=== PATIENT | female | born 1955 | race Caucasian/White ===

== ENCOUNTER → 2017-07-27 | Day surgery (SDC) | payer BC ==
[~2017-07-27] MED LIST: IV RINGERS,LACTATED 1000ML 1,000 ML IV; LIDOCAINE 2% PF Vial for OR 5 ML VIAL.; PROPOFOL 40 ML IV
[2017-07-27] MEDS: IV RINGERS,LACTATED 1000ML 1,000 ML IV (07:16)
== END | disposition home or self-care (01) ==
LOC: SURG 06:17
DX: K64.0 First degree hemorrhoids (principal); K21.9 Gastro-esophageal reflux disease without esophagitis; Z98.84 Bariatric surgery status; E03.9 Hypothyroidism, unspecified; E78.5 Hyperlipidemia, unspecified; E11.9 Type 2 diabetes mellitus without complications; Z90.49 Acquired absence of other specified parts of digestive tract; Z88.0 Allergy status to penicillin; Z88.2 Allergy status to sulfonamides; Z88.8 Allergy status to other drugs, medicaments and biological substances; Z88.1 Allergy status to other antibiotic agents; Z79.84 Long term (current) use of oral hypoglycemic drugs; Z79.899 Other long term (current) drug therapy; Z83.3 Family history of diabetes mellitus; Z96.659 Presence of unspecified artificial knee joint; Z98.51 Tubal ligation status; Z82.49 Family history of ischemic heart disease and other diseases of the circulatory system
CPT/HCPCS: 43235; 88305; J2704

== ENCOUNTER → 2017-07-29 | Outpatient (CLI) | payer BC ==
[~2017-07-29] MED LIST changes: +CONTRAST GIVEN MC; +IOHEXOL 240 MG/ML 50ML VIAL. PO; +IOHEXOL 300 MG/ML 100ML VIAL. IV; -IV RINGERS,LACTATED 1000ML 1,000 ML IV; -LIDOCAINE 2% PF Vial for OR 5 ML VIAL.; -PROPOFOL 40 ML IV
[2017-07-29] MEDS: IOHEXOL 240 MG/ML 50ML VIAL. PO (09:30)
[2017-07-29] MEDS: IOHEXOL 300 MG/ML 100ML VIAL. IV (09:30)
== END | disposition home or self-care (01) ==
LOC: CT 08:56
DX: K43.2 Incisional hernia without obstruction or gangrene (principal); E11.9 Type 2 diabetes mellitus without complications; Z95.1 Presence of aortocoronary bypass graft
CPT/HCPCS: 74177; Q9966; Q9967

== ENCOUNTER → 2020-02-21 | Outpatient (CLI) | payer BC ==
[2017-07-27 08:20] VITALS: BP 135/65
[~2020-02-21] MED LIST changes: +BARIUM SULFATE 340 GM SUSPENSION. PO ONE; +BARIUM SULFATE 60% 355 ML SUSP PO ONE; -CONTRAST GIVEN MC; +DEXL60CA2 PO; +GABA300C18 PO; +GLIM4TAB8 PO; -IOHEXOL 240 MG/ML 50ML VIAL. PO; -IOHEXOL 300 MG/ML 100ML VIAL. IV; +LEVO75TA90 PO; +METF500T16 PO; +PRAM0.255 PO; +SIMETHICONE/SOD BICARB/CITRIC ACID PACKET. PO ONE
--- NOTE | 2020-02-21 14:24 | RAD ---
EXAM: Single-contrast upper GI series. HISTORY: Status post gastric bypass. Abdominal pain and nausea. Food gets stuck in the cervical esophagus. COMPARISON: 07/29/2017. FINDINGS: Barium contrast was administered orally and followed in its course through the esophagus, postoperative stomach and proximal small bowel. 14 fluoroscopic series were obtained. Fluoroscopy time 2.8 minutes. There are changes of coronary artery bypass grafting and cholecystectomy. 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 The esophagus is normal in morphology and mucosal pattern. The gastroesophageal junction is in its expected position. Esophageal motility appeared normal. However, there was a prominent cricopharyngeus impression on some swallows. A 12.5 mm barium pill arrested at this location and passed with liquids. The postoperative gastric pouch appears mildly dilated. No gastrogastric fistula is identified, but the excluded portion of the stomach is moderately distended with gas and a small amount of fluid. Some contrast is present in the duodenal bulb at the completion of the study, which may reflect reflux into the afferent limb rather than a gastrogastric fistula. The proximal small bowel is nondilated. The gastroesophageal junction opened promptly. The proximal small bowel is not dilated. IMPRESSION: 1. The excluded portion of the stomach appears moderately dilated with mostly gas. A gastrogastric fistula is not identified, but reflux into the afferent limb is suspected. Correlate for a dilated excluded stomach as a cause of patient symptoms. 2. The gastric pouch is mildly larger than expected. 3. Prominent cricopharyngeus impression resulted in a rest of a 12.5 mm barium pill, reproducing the patient's dysphagia. Speech pathology could further evaluate. Electronically signed by: Berny Cooper MD (02/21/2020 2:22 PM) [id number]
== END | disposition home or self-care (01) ==
LOC: RAD 11:34
PROVIDERS: ATTEND Internal Medicine Gastroenterology
DX: R11.2 Nausea with vomiting, unspecified (principal); K31.89 Other diseases of stomach and duodenum; R14.0 Abdominal distension (gaseous); Z98.84 Bariatric surgery status
CPT/HCPCS: 74240